=== PATIENT | male | born 1960 | race Hispanic/Latino ===

== ENCOUNTER → 2016-10-22 | Outpatient (CLI) | payer SELFPAY | END | disposition home or self-care (01) | LOC: LAB.O 09:25 | PROVIDERS: ATTEND Internal Medicine Nephrology | DX: N17.9 Acute kidney failure, unspecified (principal); N18.3 Chronic kidney disease, stage 3 (moderate) ==

== ENCOUNTER 2019-08-02 17:12 | Emergency (ER) | payer SELFPAY ==
[2019-08-02] MEDS ORDERED: ONDANSETRON INJ 4 MG/2 ML VIAL IV ONE (17:23)
[2019-08-02] MEDS ORDERED: MORPHINE SULFATE INJ 10 MG/ML VIAL IV ONE (17:23)
[2019-08-02] MEDS ORDERED: methylPREDNISolone SODIUM SUC 125 MG/2 ML VIAL IV ONE (17:23)
--- NOTE | 2019-08-02 17:26 | ED.PDOC ---
History of Present Illness - General Chief Complaint: General Time Seen by Provider: 08/02/19 17:22 Source: patient, RN notes reviewed, Vital Signs reviewed, EMS notes reviewed Exam Limitations: no limitations - History of Present Illness Initial Comments: Pt is a 59 yo male that presents to ED via EMS for "gout flare up." States he has a h/o gout, but his doctor took him off of his gout medication 2 weeks ago when his kidney labs were elevated. States for the past 3-4 days he has had his typical gout pain in bilateral knees and ankle and today began having pain to right hand. He denies any injury or trauma to these areas. Denies NVD, abdominal pain, fever, CP or SOB. States he took Tylenol this morning for pain and was able to work all day, then pain increased this afternoon. Given 30 mg Toradol by EMS. Allergies/Adverse Reactions: Allergies NO KNOWN ALLERGY Allergy (Verified 08/02/19 17:26) Home Medications: Ambulatory Orders Acetaminophen W/ Codeine [Tylenol W/ CODEINE #3] 1 tablet PO Q6H PRN #20 08/02/19 Amlodipine Besylate 10 mg PO DAILY 08/02/19 Glipizide 5 mg PO DAILY 08/02/19 Methylprednisolone [Medrol Dose Anthony] 4 mg PO DAILY 6 Days #21 tab 08/02/19 Metoprolol Tartrate 100 mg PO BID 08/02/19 Simvastatin 10 mg PO DAILY 08/02/19 Telmisartan-Hydrochlorothiazid [Micardis Hct 80-25 mg] 1 tab PO DAILY 08/02/19 Tramadol HCl 50 mg PO Q6HR PRN 08/02/19 Review of Systems - Review of Systems Constitutional: Denies: chills, fever, weakness EENTM: Denies: nose congestion, throat pain Respiratory: Denies: cough, short of breath Cardiology: Denies: chest pain, palpitations, syncope Gastrointestinal/Abdominal: Denies: diarrhea, nausea, vomiting Genitourinary: Denies: dysuria Musculoskeletal: States: joint pain. Denies: back pain, neck pain Skin: Denies: change in color, lesions, rash Neurological: Denies: headache, paresthesia, weakness All other Systems: Reviewed and Negative Family Medical History - Family History Mother Family History: Unknown Physical Exam - Physical Exam General Appearance: Alert, Comfortable, No apparent distress Neck: non-tender, full range of motion, supple Respiratory: chest non-tender, lungs clear, normal breath sounds, no respiratory distress, no accessory muscle use Cardiovascular/Chest: regular rate, rhythm, no edema, no murmur Peripheral Pulses: radial,right: 2+, radial,left: 2+, dorsalis pedis,right: 2+, dorsalis pedis,left: 2+, posterior tibialis,right: 2+, posterior tibialis,left: 2+ Gastrointestinal/Abdominal: non tender, soft, no pulsatile mass Extremity: other - TTP difusely to bilateral knees and ankles. There is no erythema, warmth, edema or effusion noted. Mild TTO right hand at 1st and 2nd MCP joints. Has FROM in all extremities Neurologic: no motor/sensory deficits, alert, normal mood/affect Skin Exam: normal color, warm/dry Progress - Progress Progress: 08/02/19 17:31 Pt has elevated temp on arrival to ED. Will start sepsis protocol 08/02/19 18:47 Pt recheck. Pain is much improved. I have given IVF and started abx. Still has mild tachycardia, no hypotension. Has leukocytosis, but initial lactic is WNL. Will repeat. Creatinine at baseline. Pt has joint pain in multiple sites, knees, ankle, right hand. None of these have erythema, warmth or effusion. Due to multiple joint pains, I doubt septic arthritis at this time. 08/02/19 20:22 Pt presents with "gout flare." States this is similar to previous episodes and has pin in multiple joints. He is febrile here. Tachycardia resolved with pain meds and IVF. Lactic normal x 2. Has leukocytosis. No sign of septic joint or sepsis at this time. States steroids are what he has taken in the past for gout and works well for him. I have given 1 dose IV steroids here and will DC home on steroid taper. No definite source of infection at this time. He feels comf ortable going home and monitor fever and symptoms and will f/u with his PCP in 1-2 days for recheck and continued evaluation. SRP given - Results/Orders Results/Orders: EKG--sinus tachycardia, rate 120, nml intervals, no ST abnormality CHEST XRAY EXAM DESCRIPTION: Chest,1 View CLINICAL HISTORY: 59 years Male, fever COMPARISON: None. TECHNIQUE: AP portable chest. FINDINGS: Heart size is normal with normal pulmonary vascularity. No consolidating infiltrate. No pulmonary mass or worrisome nodule. No pneumothorax or pleural effusion. Bones are unremarkable. IMPRESSION: No acute process is identified in the chest. Departure - Departure Clinical Impression: Febrile illness, acute Gout flare Qualifiers: Gout site: multiple sites Gout etiology: unspecified cause Qualified Code(s): M10.9 - Gout, unspecified Arthralgia Qualifiers: Joint pain location: unspecified Qualified Code(s): M25.50 - Pain in unspecified joint Leukocytosis Qualifiers: Leukocytosis type: unspecified Qualified Code(s): D72.829 - Elevated white blood cell count, unspecified Time of Disposition: 20:21 Disposition: Discharge to Home or Self Care Condition: Good Departure Forms: ED Discharge - Pt. Copy, Patient Portal Self Enrollment Instructions: Gout (DC) Diet: resume usual diet Activity: increase activity as tolerated Referrals: Osvaldo Ray MD [Active Staff] - 1-2 Days Prescriptions: Acetaminophen W/ Codeine [Tylenol W/ CODEINE #3] 1 tablet PO Q6H PRN #20 PRN Reason: Pain Methylprednisolone [Medrol Dose Anthony] 4 mg PO DAILY 6 Days #21 tab Home Medications: Ambulatory Orders Acetaminophen W/ Codeine [Tylenol W/ CODEINE #3] 1 tablet PO Q6H PRN #20 08/02/19 Amlodipine Besylate 10 mg PO DAILY 08/02/19 Glipizide 5 mg PO DAILY 08/02/19 Methylprednisolone [Medrol Dose Anthony] 4 mg PO DAILY 6 Days #21 tab 08/02/19 Metoprolol Tartrate 100 mg PO BID 08/02/19 Simvastatin 10 mg PO DAILY 08/02/19 Telmisartan-Hydrochlorothiazid [Micardis Hct 80-25 mg] 1 tab PO DAILY 08/02/19 Tramadol HCl 50 mg PO Q6HR PRN 08/02/19
[2019-08-02] MEDS ORDERED: SODIUM CHLORIDE 0.9% 1000ML 1,000 ML IVS ONE (17:29)
[2019-08-02] MEDS ORDERED: ACETAMINOPHEN 500 MG TAB PO ONE (17:29)
--- NOTE | 2019-08-02 17:46 | RAD ---
EXAM DESCRIPTION: Chest,1 View CLINICAL HISTORY: 59 years Male, fever COMPARISON: None. TECHNIQUE: AP portable chest. FINDINGS: Heart size is normal with normal pulmonary vascularity. No consolidating infiltrate. No pulmonary mass or worrisome nodule. No pneumothorax or pleural effusion. Bones are unremarkable. IMPRESSION: No acute process is identified in the chest. Electronically signed by: Vasyl Arnold MD 08/02/2019 5:44 PM CDT
[2019-08-02] MEDS: SODIUM CHLORIDE 0.9% (FLUSH) 10 ML SYG IV PRN ×2 (18:04→18:50)
[2019-08-02] MEDS ORDERED: PIPERACILLIN/TAZOBACTAM 3.375 GM in SODIUM CHLORIDE 0.9% 100ML 100 ML IVPB ONE (18:23)
[2019-08-02 20:03] VITALS: BP 127/71; O2SAT 97
[2019-08-02 20:28] VITALS: TEMP 99.6
== END 2019-08-02 20:29 | disposition home or self-care (01) ==
LOC: ER 17:12
DX: M10.9 Gout, unspecified (principal); R50.9 Fever, unspecified; R00.0 Tachycardia, unspecified; M25.50 Pain in unspecified joint; D72.829 Elevated white blood cell count, unspecified; Z79.899 Other long term (current) drug therapy
CPT/HCPCS: 36415; 71045; 80048; 81001; 83605; 84550; 85025; 85730; 87040; 93005; J2543; J7050